=== PATIENT | male | born 1965 | race Caucasian/White ===

== ENCOUNTER 2023-07-11 12:00 | Outpatient (RCR) | payer OTHER, SELFPAY ==
[2023-07-10 10:55] VITALS: BMI 32.4
[2023-07-10 10:56] VITALS: BP 130/84; PULSE 76; TEMP 37.1
--- NOTE | 2023-07-10 13:50 | PC.ADMIT ---
Patient is a 57 year old male who was referred to [facility] by [facility] worker d/t depression sxs and history of severe alcohol use disorder which has impacted his health. Patient reportedly went to detox at [facility] on 07/03-07/08/23. Patient stated [facility] stated he really did not need detox. Patient reports conflicting information stating he was sober for almost over 3 years however relapsed after Thanksgiving then stated he relapsed 6 months ago. Patient reports drinking daily 2 nips vodka and 2-24 oz twisted teas. Stated he drank the day he got out of detox on 07/08/23 and has not drank since. Reports drinking 1 nip vodka and 1 twisted tea 24 oz on 07/08/23. Reports history of alcohol related seizure 4 years ago. Patient has dx of alcohol related cirrhosis of the liver. Patient encouraged to start attending AA again for more support. Patient is alert and oriented x4. Calm and cooperative. Denied SI or HI. Patient given a copy of his safety/relapse plan and I reviewed this with him. Medications reconciled with patient, patient list he brought in, and pharmacy. He reports taking medications as prescribed including MAT with Acamprosate. VS BP 130/84 P 76. No diaphoresis, No N/V. He is alert and oriented. Slight tremor or hands, denied anxiety, no agitation, No VH No AH.
--- NOTE | 2023-07-10 15:43 | PHP/IOPCOSI ---
Ishmael treatment plan was reviewed by the [facility] clinical staff. Their case has been opened and reviewed.
--- NOTE | 2023-07-10 18:02 | P.HPPSP_ITS ---
HPI Date of Service: 07/10/23 Chief Complaint: depression,AUD Sources of Information: patient interviewed, chart reviewed and crisis/core team assessment reviewed HPI Narrative: I started drinking again. I had been drinking for years. My liver is shot. Patient is a 57 yr old male with history of chronic alcoholism who was referred by his insurance company after recently being diagnosed with hepatic cirrhosis. He just completed 6 days of detox in [place] prior to coming to [facility]. He reports that he had quit alcohol for 3 or 4 years and then relapsed around [facility] last year. He had been drinking about 2 twisted teas and 2 nips daily, though he says ?I really can't be... doctor says I'm cary if I have 2 years (to live) with drinking . His partner found out that he had relapsed and insisted that he get help. He reportedly told his partner he was attending daily AA meetings, but instead was going [place] the [place]. He reports gambling addiction and says he has lost thousands and thousands of dollars. He reports living in a mobile home and has a history of falls, including falling and hitting his head around [place] and drove himself to the ED while intoxicated. Apparently they held him there for 10 hours because his blood alcohol level was 0.6 (?). He says he never thought of himself as an alcoholic, because he has always functioned and, prior to his diagnosis of cirrhosis, he reportedly never suffered any problems or consequences related to his alcohol use, denies any history of arrests, DUIs or speeding tickets. Currently he reports his mood as pretty good . He denies any hopelessness or SI. He currently denies any issues with cravings. He denies any substance use, last drink was last Friday. He is stable on current medication regime and sees his PCP regularly. His next appointment is in one week. Past Psychiatric History: No previous IP or [facility] admissions Detox admission 07/2023 to [facility] Denies any hx of suicide attempts, gestures or SIBS Denies any history of aggression PCP: Dr. Elva Garza Previous trials include: acamprosate (current) was on/off this medication previously, varying for 2 months and up to 4 yrs CURRENT MEDICATIONS: Effexor XR 75 mg qd clonidine 0.1 mg PRN anxiety hydroxyzine 50 mg qhs PRN sleep acamprosate 333 mg TID prednisone 50 mg qd fluconazole 200 mg qd ASA 81 mgqd carvedilol 3.125 mg BID pantoprazole 40 mg qd famotidine 20 mg BID vitamin C Ferrous sulfate 325 mg qd magnesium oxide 400 mg potassium chloride ER 20 meq propafenone 225 mg BID MV albuterol inhaler [facility] Medical History (Updated 07/14/23 @ 09:57 by Payal Ann MD) Pulmonary fungal infection Presence of Watchman left atrial appendage closure device Sleep apnea Carpal tunnel syndrome History of fracture Psoriatic arthritis 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 Parents are still alive in their 80s with dementia and is close to family Graduated HS in 1982, was voted [employer] Substance History: Long history of alcohol addiction/dependence Reportedly used marijuana once many years ago Denies hx of substance use Lifetime nonsmoker Trauma History: Denies Diagnostics Vital Signs (24Hr): Vital Signs - 24 hr 07/10/23 10:56 Temperature 98.8 F Pulse Rate 76 Blood Pressure 130/84 BMI result Body Mass Index 32.4 Meds/Allergies Meds Home Medications Medication Instructions Recorded Confirmed Type acamprosate 333 mg tablet,delayed 333 mg PO TID 07/10/23 07/10/23 History release albuterol sulfate 90 mcg/actuation 2 puff inhalation QID PRN wheezing 07/10/23 07/10/23 History aerosol inhaler ascorbic acid (vitamin C) 250 mg 250 mg PO DAILY anemia 07/10/23 07/10/23 Histo ry tablet aspirin 81 mg tablet,delayed 81 mg PO DAILY 07/10/23 07/10/23 History release carvedilol 3.125 mg tablet 3.125 mg PO BID 07/10/23 07/10/23 History clonidine HCl 0.1 mg tablet 0.1 mg PO TID anxiety, HTN 07/10/23 07/10/23 History famotidine 20 mg tablet 20 mg PO BID 07/10/23 07/10/23 History ferrous sulfate 325 mg (65 mg 325 mg PO DAILY 07/10/23 07/10/23 History iron) tablet fluconazole 200 mg tablet 200 mg PO DAILY 07/10/23 07/10/23 History fluticasone furoate 100 1 ea inhalation DAILY 07/10/23 07/10/23 History mcg-vilanterol 25 mcg/dose inhalation powder (Breo Ellipta) hydroxyzine HCl 50 mg tablet 50 mg PO TID PRN Anxiety 07/10/23 07/10/23 History magnesium oxide 400 mg (241.3 mg 400 mg PO DAILY 07/10/23 07/10/23 History magnesium) tablet multivitamin with minerals-ferrous 1 tab PO DAILY 07/10/23 07/10/23 History fumarate 15 mg iron tablet pantoprazole 40 mg tablet,delayed 40 mg PO BID 07/10/23 07/10/23 History release potassium chloride 20 mEq 40 meq PO DAILY 07/10/23 07/10/23 History tablet,extended release propafenone 225 mg 225 mg PO BID 07/10/23 07/10/23 History capsule,extended release 12 hr spironolactone 25 mg tablet 50 mg PO DAILY 07/10/23 07/10/23 History tamsulosin 0.4 mg capsule 0.4 mg PO BEDTIME 07/10/23 07/10/23 History tizanidine 2 mg tablet 2 mg PO BID PRN moderate pain 07/10/23 07/10/23 History torsemide 20 mg tablet 40 mg PO DAILY 07/10/23 07/10/23 History venlafaxine 75 mg capsule,extended 75 mg PO DAILY 07/10/23 07/10/23 History release 24 hr Allergies Allergies Allergy/AdvReac Type Severity Reaction Status Date / Time No Known Allergies Allergy Verified 07/10/23 10:55 Mental Status Exam Mental Status Exam Narrative: ?Alert, oriented, in no acute distress. Calm, cooperative, engaged. No psychomotor agitation or neurovegetative retardation. Eye contact maintained. Mood anxious, affect variable, mood congruent. Speech normal. Thought process linear, coherent. Thought content related to stressors, denies any helplessness, hopelessness or SI.? No aggressive ideation or HI. No paranoia or delusional content elicited. No evidence of psychosis. Insight and judgment impaired. Assessment & Plan Assessment & Plan (1) Alcohol use disorder: Status: Acute Code(s): F10.90 - Alcohol use, unspecified, uncomplicated (2) Gambling disorder, persistent: Status: Acute Code(s): F63.0 - Pathological gambling (3) Mood disorder: Status: Acute Code(s): F39 - Unspecified mood [affective] disorder Plan ADmit to PHP continue regular medications [facility] reviewed UDS and routine lab work as appropriate continue to monitor as per protocol Patient educated on: diagnosis, medication risk/benefits and substance abuse Informed Consent: understands Reason for continued partial hosp. stay Substantial Risk for: inability to function, rapid decompensation and med/psych decompensation Certification I certify that partial hospital treatment is medically necessary due to the symptoms and problems resulting from the patient's mental illness and the failure to treat the patient at the partial hospital level of care would likely result in the patient requiring inpatient psychiatric care which could not be prevented at a less intensive level of care. Time Spent With Patient Time: Total time managing care of this patient today _60___ minutes.
--- NOTE | 2023-07-14 08:51 | HO.PHP ---
Per Nat Fonsecay is going home. He is on an antibiotic for Psoriasis however reports side effects Vomiting and diarrhea. I recommend he talk to his doctor about his reaction to the medication.
--- NOTE | 2023-07-14 08:51 | PC.NURSE ---
Tj came to the program this morning. He stated he was put on an antibiotic for psoriasis by his doctor however is experiencing side effects of vomiting and diarrhea. He is going to go home as a result. I advised him to call his doctor and tell them about the reaction to the medication. He stated he already talked to his doctor who told him if it gets worse to let them know.
--- NOTE | 2023-07-15 10:56 | HO.PHP ---
Mitchell called the program and spoke with Nadia Mirza reporting that they will not be attending the program today due to inclement weather. They verbally contracted for safety over the phone and stated they would be returning tomorrow.
--- NOTE | 2023-07-15 12:06 | PC.NURSE ---
Patient called out today as he told staff that he is continuing to have side effects from the antibiotic (he c/o vomiting and diarrhea yesterday) and is going to make an appointment with his PCP today.
--- NOTE | 2023-07-15 12:28 | PC.NURSE ---
Patient called earlier and spoke to staff regarding his right lower leg and has another appointment with the doctor today regarding this. I called and spoke to Mitchell who stated he saw the doctor again today regarding his R lower leg and stated he was told, it may not be cellulitis however looked like he has an infection in his leg and is to continue on the antibiotics. Patient reports he has been picking at a scab on his right lower leg and has been doing this for a while. Patient also stated he will not be in the program tomorrow as he has another doctors appointment that was scheudled some time ago s/p inpatient f/u appointment. [facility] staff is aware. Patient denied alcohol use and stated he has been doing good regarding this.
== END 2023-07-11 23:59 | disposition home or self-care (01) ==
LOC: HO.PHPA 12:00
PROVIDERS: Visit Provider Psychiatry & Neurology Psychiatry
DX: F63.0 Pathological gambling (principal); F39 Unspecified mood [affective] disorder; F10.90 Alcohol use, unspecified, uncomplicated; Z79.899 Other long term (current) drug therapy
CPT/HCPCS: 90791; 90853

== ENCOUNTER → 2023-07-11 12:00 | Outpatient (BNV) | payer OTHER, SELFPAY | PROVIDERS: Visit Provider Psychiatry & Neurology Psychiatry | DX: F10.90 Alcohol use, unspecified, uncomplicated (principal); F63.0 Pathological gambling; F39 Unspecified mood [affective] disorder | CPT/HCPCS: 90792 ==